=== PATIENT | female | born 1965 | race African-American/Black ===

== ENCOUNTER 2017-04-11 12:43 | Inpatient (IN) ==
[2017-04-11] MEDS ORDERED: ASPIRIN PO STA (12:46)
[2017-04-11] MEDS ORDERED: NS 1,000 ML ONE ×2 (12:50→15:13)
[2017-04-11] MEDS ORDERED: NS 1,000 ML IV SCH (12:54)
[2017-04-11 13:05] LABS: MANUAL DIFF NEEDED? NO
[2017-04-11] MEDS ORDERED: NEO-SYNEPHRINE IV ONE (13:05)
[2017-04-11 13:08] LABS: BASO% 0.5 % (0.0-0.8); EOS# 0.14 X1000 (0.0-0.7); EOS% 1.8 % (0.0-10.0); HEMATOCRIT 31.4 % (37.0-47.0); HEMOGLOBIN 9.6 g/dL (12.0-16.0); IMM GRAN# 0.02 X1000 (0.0-0.04); IMM GRAN% 0.3 % (0.0-0.5); LYMPH# 1.62 X1000 (1.2-3.4); LYMPH% 20.6 % (20.5-51.1); MCH 26.8 PG (27-31); MCHC 30.6 g/dL (33-37); MCV 87.7 FL (81-99); MONO# 0.88 X1000 (0.11-0.59); MONO% 11.2 % (1.7-9.3); MPV 9.6 FL (7.4-10.4); NEUT% 65.6 % (42.2-75.2); PLT 564 X1000 (130-400); RBC 3.58 XMIL (4.2-5.4)
[2017-04-11] MEDS ORDERED: ASPIRIN ONE (13:09)
[2017-04-11] MEDS ORDERED: ZOFRAN ONE (13:11)
[2017-04-11] MEDS ORDERED: ZOFRAN IV ONE (13:14)
--- NOTE | 2017-04-11 13:24 | EKG Report ---
Test Performed on : 04/11/2017 12:49:18 PM Test Reason : CP Blood Pressure : / mmHG Vent. Rate : 160 BPM Atrial Rate : 441 BPM P-R Int : 000 ms QRS Dur : 080 ms QT Int : 284 ms P-R-T Axes : 000 -03 007 degrees QTc Int : 463 ms Atrial fibrillation. with rapid ventricular response. Possible Anteroseptal infarct (cited on or before 18-OCT-2016) Abnormal ECG When compared with ECG of 18-OCT-2016 08:38, Atrial fibrillation. has replaced Sinus rhythm. Vent. rate has increased BY 86 BPM QRS duration has decreased ST now depressed in Inferior leads Nonspecific T wave abnormality now evident in Inferior leads T wave amplitude has increased in Lateral leads Unconfirmed Result
[2017-04-11 13:26] LABS: INR 1.04 (0.86-1.15); PROTIME 13.9 Seconds (12.1-15.5); PTT PL 24.2 Seconds (22.6-43.9)
[2017-04-11] MEDS ORDERED: LANOXIN ONE (13:27)
[2017-04-11 13:31] LABS: ALBUMIN 3.9 g/dL (3.5-5.0); POTASSIUM 4.1 mmol/L (3.5-5.1); TOTAL BILIRUBIN 0.7 mg/dL (0.20-1.00)
--- NOTE | 2017-04-11 13:41 | Diag Imaging Result Doc PS360 ---
CHEST-PORTABLE - 04/11/2017 INDICATION: CP TECHNIQUE: COMPARISON: 10/18/2016 FINDINGS: The lungs are normally expanded and clear. Heart size and mediastinal contours are normal. No pneumothorax or pleural effusion. IMPRESSION: Negative exam. Electronically signed by Faustino Patel 04/11/2017 1:39 PM
[2017-04-11 13:48] LABS: CK INDEX 1.9 (0.0-2.5); CK-MB 3.5 ng/mL (0.0-5.0)
[2017-04-11] MEDS ORDERED: NEO-SYNEPHRINE 50 MG in NS 250 ML IV SCH (14:00)
[2017-04-11 14:11] LABS: UR AMPHETAMINES QUAL NONE DETECTED (NONE DETECT); UR BARBITUATES QUAL NONE DETECTED (NONE DETECT); UR BENZODIAZEPIN QUAL NONE DETECTED (NONE DETECT); UR CANNABINOIDS QUAL PRESUMPTIVE POSITIVE (NONE DETECT); UR COCAINE QUAL NONE DETECTED (NONE DETECT); UR MDMA QUAL NONE DETECTED (NONE DETECT); UR METHADONE QUAL NONE DETECTED (NONE DETECT); UR METHAMPHETAMINE QUAL NONE DETECTED (NONE DETECT); UR OPIATES QUAL NONE DETECTED (NONE DETECT); UR OXYCODONE QUAL NONE DETECTED (NONE DETECT); UR PCP QUAL NONE DETECTED (NONE DETECT); UR TCA QUAL NONE DETECTED (NONE DETECT)
[2017-04-11] MEDS ORDERED: LANOXIN IV ONE (14:16)
[2017-04-11 14:33] LABS: BILIRUBIN URINE NEGATIVE (NEGATIVE); BLOOD URINE NEGATIVE (NEGATIVE); CLARITY CLEAR (CLEAR); COLOR YELLOW; LEUKOCYTES URINE TRACE (NEGATIVE); NITRITE URINE NEGATIVE (NEGATIVE); PROTEIN URINE TRACE mg/dL (NEGATIVE); SP GRAVITY URINE 1.005; UROBILINOGEN URINE NORMAL
[2017-04-11 14:35] LABS: URINE CAST NONE SEEN /LPF; URINE CRYSTAL NONE SEEN /HPF; URINE CULTURE PL NEEDED? YES; URINE EPITHELIAL CELLS <10 /HPF (<10); URINE SOURCE CLEAN CATCH; URINE WBC <10 /HPF (<10)
[2017-04-11] MEDS ORDERED: NS 1,000 ML IV ONE (15:12)
[2017-04-11] MEDS ORDERED: ZOFRAN IV PRN (16:02)
[2017-04-11] MEDS: NS 1,000 ML IV SCH (16:21)
[2017-04-11] MEDS ORDERED: PEPCID PO ONE (16:51)
[2017-04-11] MEDS ORDERED: XARELTO PO SCH (17:00)
--- NOTE | 2017-04-11 17:04 | CONSULTATION ---
DATE OF CONSULTATION: 04/11/2017 INDICATION: Atrial fibrillation with history of paroxysmal atrial fibrillation. HISTORY OF PRESENT ILLNESS: Ms. Mazariegos is a 51-year-old, black female, who is noncompliant with medical therapy, including her Xarelto. She has been off this medication for roughly 3 months. She continues to smoke. She presented for evaluation of heart racing and shortness of breath. This has been going on for more than 48 hours. She is unable to provide much history regarding the onset, but believes it was within the last week. She has not had any episodes of chest pain. She has not had any bleeding issues. She continues to be in atrial fibrillation presently. PAST MEDICAL HISTORY: 1. Significant for paroxysmal atrial fibrillation, previously maintained on Xarelto, but currently not compliant with therapy. 2. Diabetes mellitus. 3. Hypertension. 4. Hyperlipidemia. 5. Cannabis abuse. 6. Morbid obesity. SOCIAL HISTORY: She uses marijuana, which was positive on her drug screen. History of smoking as well. FAMILY HISTORY: Significant for hypertension. REVIEW OF SYSTEMS: A 10 system review of systems is negative except for those mentioned in HPI. PHYSICAL EXAMINATION: Vital signs: Afebrile. Heart rate in the low 100s. Blood pressure 126/70. Generally: No acute distress. HEENT: Oropharynx is moist. Normal dentition. Eye examination shows pink conjunctivae. White sclerae. Neck: Examination shows no obvious thyromegaly or thyroid tenderness. Cardiovascular: She is in an irregularly irregular rhythm. No obvious murmurs. She has no S3. She has no lower extremity edema. Chest: Clear bilaterally. No increased work of breathing. Abdomen: Soft, nontender, nondistended. No obvious organomegaly. Skin: Warm and dry throughout without any rashes. Neurological: Moving all extremities well. Cranial nerves 2-12 are intact without any sensation deficits. Psychiatric: Alert, oriented and pleasant. Normal mood and affect. PERTINENT DATA: She had a chest x-ray demonstrating no acute abnormalities. She had an electrocardiogram demonstrating atrial fibrillation, rapid rate of 160 beats per minute. Laboratory data shows white count 7.8, hematocrit 31.4, platelet count 564,000. Her INR is 1. Sodium 135, potassium 4.1, BUN 25, 12, creatinine 1.3. Magnesium level is 2. ProBNP is 495. Cardiac enzymes are negative. Urinalysis was reviewed. UDS screen was positive for marijuana. ASSESSMENT: Paroxysmal atrial fibrillation with recurrence. PLAN: We will plan for JEFFREY cardioversion in the morning. She has not been initiated on anticoagulation. I will restart, use Xarelto at 20 mg bedtime. I have stressed compliance with this in the future with the patient. Reportedly, she had a right lung biopsy in the past, but I am not seeing the results for this anywhere in our system. It does appear that she had a chest CT performed in December which suggested followup of a nodule. She had a nuclear scan performed in September demonstrating normal perfusion. In addition, she had an echocardiogram performed in September that showed an EF of 64% and an otherwise unremarkable study. Risks, benefits, and alternatives to the upcoming JEFFREY cardioversion was explained to the patient. We will plan on transferring the patient over to [facility] for dilatation of the JEFFREY cardioversion. cc: Frankie Kay MD
[2017-04-11] MEDS ORDERED: DILAUDID IV PRN (17:52)
[2017-04-11] MEDS: LOPRESSOR PO SCH (19:03)
[2017-04-11] MEDS ORDERED: NS 500 ML IV ONE (19:35)
--- NOTE | 2017-04-11 19:48 | HISTORY AND PHYSICAL ---
PRIMARY CARE PHYSICIAN: Dr. Lara. CHIEF COMPLAINT: Of "heart fluttering and I couldn't catch my breath." HISTORY OF PRESENTING ILLNESS: This is a 51-year-old female who presented to [facility] ER with complaints of her heart fluttering, shortness of breath. She felt her heart racing and tried to self-medicate with 4 metoprolol 50 mg total and 2 hydrochlorothiazide/lisinopril 20/12.5. Her heart rate on arrival was still 122. Blood pressure was 107/83 but approximately 20 minutes later it dropped to 88/68. Her D-dimer was 0.56. Her creatinine is 1.3. Her AST of 236, ALT 147. Her urine drug screen was presumptive positive for cannabinoids and so she was admitted to the intensive care unit for further evaluation and treatment. PAST MEDICAL HISTORY: Hypertension, diabetes, anxiety and atrial fibrillation. PAST SURGICAL HISTORY: and ankle surgery. FAMILY HISTORY: Noncontributory. SOCIAL HISTORY: She is a half a pack a day smoker and drinks 3 beers a week and 1 shot of liquor weekly. Denied any illicit drug use. ALLERGIES: Penicillin. HOME MEDICATIONS: She takes Pepcid 20 mg p.o. daily, Prozac 20 mg p.o. daily, lisinopril/hydrochlorothiazide 20/12.5 will be held and her metoprolol 50 mg daily will be held at this time. LABORATORY DATA: Showed a white blood cell count of 7.87, hemoglobin 9.6, hematocrit 31.4, platelets 564,000. PT and INR 13.9 and 1.04 with a D-dimer of 0.56. Sodium 135, potassium 4.1, chloride 99, CO2 18, BUN 12, creatinine 1.3, AST of 236, ALT 147. Cardiac enzyme was negative. ProBNP of 495. Urinalysis was negative. Urine drug screen was presumptive positive for cannabinoids. Serum alcohol level showed none detected. Chest x-ray was a negative exam and a EKG showed atrial fibrillation with RVR at 160. REVIEW OF SYSTEMS: She denied any fever, chills, blurred vision. She was positive for palpitations, shortness of breath. Denied any abdominal pain, constipation, diarrhea, burning or hurting with urination. PHYSICAL EXAM: VITAL SIGNS: On arrival she had a temperature of 97.9 degrees, pulse 122, respirations 20, blood pressure 107/83, saturating 98% on 2 L. GENERAL: This is a 51-year-old female who is lying in the bed and answers questions appropriately. HEENT: Normocephalic and atraumatic. Pupils are equal, round, reactive to light. Extraocular movements are intact. Oropharynx and nares are clear. NECK: Supple. LUNGS: Clear to auscultation bilaterally with equal lung expansion and chest wall movement. HEART: With an irregular rate and rhythm but no murmurs, rubs, or gallops. ABDOMEN: Soft, nontender, nondistended. Bowel sounds are present x4 quadrants. EXTREMITIES: No clubbing, cyanosis, or edema. NEUROLOGICAL: The cranial nerves 2-12 are grossly intact. ASSESSMENT: 1. Atrial fibrillation with rapid ventricular response. 2. Acute kidney injury. 3. Elevated liver function tests. 4. Diabetes type 2. 5. Tobacco abuse. PLAN: She was admitted to the intensive care unit. Will consult Cardiology. Continue normal saline at 150 mL an hour. She was given digoxin 250 mcg IV x1, Ousmane-Synephrine 50 mg IV x1, aspirin 325 mg p.o. x1. Will continue her home medications. We will check a lactate level now and will check a CBC, CMP in the a.m. Place on a diabetic diet. Dictated by LIV Siegel for Jacky Chance MD cc: LIV Siegel MD
[2017-04-11] MEDS ORDERED: NS 500 ML ONE (20:06)
[2017-04-11] MEDS: ELIQUIS PO SCH (20:08)
[2017-04-11] MEDS ORDERED: LOPRESSOR PO SCH (21:00)
[2017-04-12] MEDS: LOPRESSOR PO SCH ×4 (02:31→20:14)
[2017-04-12 05:45] LABS: MANUAL DIFF NEEDED? NO
[2017-04-12] MEDS: NS 1,000 ML IV SCH ×3 (05:56→20:14)
[2017-04-12 06:01] LABS: BASO% 0.6 % (0.0-0.8); EOS# 0.08 X1000 (0.0-0.7); EOS% 1.3 % (0.0-10.0); HEMATOCRIT 22.1 % (37.0-47.0); HEMOGLOBIN 6.7 g/dL (12.0-16.0); IMM GRAN# 0.01 X1000 (0.0-0.04); IMM GRAN% 0.2 % (0.0-0.5); LYMPH# 1.32 X1000 (1.2-3.4); LYMPH% 20.9 % (20.5-51.1); MCH 26.9 PG (27-31); MCHC 30.3 g/dL (33-37); MCV 88.8 FL (81-99); MONO# 0.87 X1000 (0.11-0.59); MONO% 13.8 % (1.7-9.3); MPV 9.6 FL (7.4-10.4); NEUT% 63.2 % (42.2-75.2); PLT 322 X1000 (130-400); RBC 2.49 XMIL (4.2-5.4)
--- NOTE | 2017-04-12 06:14 | EKG Report ---
Test Performed on : 04/12/2017 05:35:17 AM Test Reason : afib Blood Pressure : / mmHG Vent. Rate : 077 BPM Atrial Rate : 077 BPM P-R Int : 142 ms QRS Dur : 102 ms QT Int : 432 ms P-R-T Axes : 069 014 044 degrees QTc Int : 488 ms Sinus rhythm. with premature atrial complexes. with aberrant conduction. Prolonged QT Abnormal ECG When compared with ECG of 11-APR-2017 12:49, (Unconfirmed) Sinus rhythm. has replaced Atrial fibrillation. Vent. rate has decreased BY [address] no longer depressed in Inferior leads ST no longer depressed in Lateral leads Nonspecific T wave abnormality no longer evident in Inferior leads Confirmed by Jv Good MD ([id number]) on 04/19/2017 10:21:17 PM
[2017-04-12 06:19] LABS: AGAP 8; BUN 10 mg/dL (8-22); CHLORIDE 105 mmol/L (98-107); COSMO 269; POTASSIUM 3.6 mmol/L (3.5-5.1); SODIUM 135 mmol/L (136-145); TCO2 22 mmol/L (25-35)
[2017-04-12] MEDS ORDERED: BENADRYL PO ONE (06:53)
[2017-04-12] MEDS ORDERED: TYLENOL PO ONE (06:53)
[2017-04-12] MEDS: PEPCID PO SCH (09:14)
[2017-04-12] MEDS: ELIQUIS PO SCH (09:14)
[2017-04-12] MEDS: PROZAC PO SCH (09:15)
--- NOTE | 2017-04-12 09:29 | PROVIDER DOCUMENTATION ---
This chart was entered by Vanna Madrid Scribe, acting as scribe for Olman Leonard PA. HPI-Chest Pain - General Stated Complaint: CHEST PAIN Time Seen by Provider: 04/11/17 12:46 Source: patient Allergies/Adverse Reactions: Patient Allergies Allergy/AdvReac Type Severity Reaction Status Date / Time Penicillins Allergy Severe itching,hui Verified 04/11/17 12:54 h Home Medications: Home Medication List Medication Instructions Recorded Confirmed Last Taken Type Famotidine [Pepcid] 20 mg PO DAILY 10/29/15 04/11/17 04/11/17 History Fluoxetine HCl [Prozac] 20 mg PO DAILY 10/29/15 04/11/17 04/11/17 History Lisinopril/Hydrochlorothiazide 1 each PO DAILY 10/29/15 04/11/17 04/11/17 History [Lisinopril-Hctz 20-12.5 mg Tab] Metoprolol Succinate E.r. [Toprol 50 mg PO DAILY #30 tablet 10/21/16 04/11/17 Rx Xl] - History of Present Illness-CP Nature of Presenting Problem: 51 yo F presents to the ER with complaint of CP, n/v/d, and SOB. Has a hx of a- fib, xarelto is discontinued. Pt is in moderate distress, diaphoretic. Location: reports: central Chest Pain Radiation: reports: no radiation Quality of Pain: reports: dull Onset/Duration: 3 days ago Associated Symptoms: reports: diaphoresis, nausea, vomiting Review of Systems - Adult - REVIEW OF SYSTEMS - ADULT Constitutional: denies: chills, fever Eyes: reports: no symptoms reported Ears, Nose, Mouth & Throat: reports: no symptoms reported Cardiovascular: reports: chest pain, irregular heart rate. denies: palpitations Respiratory: reports: shortness of breath. denies: cough, wheezing Gastrointestinal: reports: nausea, vomiting. denies: abdominal pain, diarrhea Genitourinary: reports: no symptoms reported Musculoskeletal: reports: no symptoms reported Integumentary: reports: no symptoms reported Neurological: reports: no symptoms reported Psychiatric: reports: no symptoms reported Endocrine: reports: no symptoms reported Hematologic/Lymphatic: reports: no symptoms reported Allergic/Immunologic: reports: no symptoms reported All Other Systems: Reviewed and Negative Past History - Adult - PAST MEDICAL HISTORY-ADULT Review of Records: reports: Nursing Assessment Review, Medications Reviewed Cardiovascular: reports: A-Fib, HTN, hyperlipidemia Endocrine/Immune: reports: Diabetes - PRIOR SURGERIES/PROCEDURES Surgical/Procedure History: reports: BTL, , orthopedic (extremity) ( left ankle) - IMMUNIZATION STATUS Childhood Immunizations: See Nurse Assessment Flu Vaccine: See Nurse Assessment - SOCIAL HISTORY Substance Use: alcohol Alcohol Use Frequency: every day Physical Exam-General - PHYSICAL EXAM-ADULT Initial Vital Signs Reviewed: Yes - CONSTITUTIONAL General Appearance: alert, moderate distress - EYES Eyes: PERRL/EOMI, pink conjunctivae - HEAD, EARS, NOSE, MOUTH & THROAT HENMT: normocephalic/atraumatic, normal ENT inspection - NECK Neck: supple, normal inspection - CARDIOVASCULAR Cardiovascular: no edema, irregularly irregular - GASTROINTESTINAL (ABDOMEN) Abdominal Exam: normal bowel sounds, non tender, soft - MUSCULOSKELETAL Back Exam: no CVA tenderness, no vertebral tenderness Extremity: normal gait, normal inspection Peripheral Pulses: radial (R): 1+, radial (L): 1+ - SKIN Integumentary: normal color, diaphoresis. negative: warm/dry - NEUROLOGIC Neurologic: grossly normal, no motor/sensory deficits - PSYCHIATRIC Psych/Mental Status: normal mood/affect, normal thought content, normal thought process, oriented x 3 Progress - PLAN OF CARE/RESULTS Progress/Plan/Lab Results: 1400: heart rate improving. feeling better. Result Diagrams: 04/12/17 04:18 04/12/17 04:18 - EKG 1 Time of EKG reading by physician:: 12:49 EKG Read and Signed by:: Jv Good EKG Interpretation (*Must complete 3 of following elements*): Abnormal ( possible anteroseptal infarct, age undetermined) Rate: 160 Rhythm: a-fib with RVR [place]: normal QRS: normal CT Interval: normal ST Wave: normal - XRAY 1 XRAY Study: Chest Impression: Normal (negative exam, per radiologist) - CONSULTS/PCP/HOSPITALIST Notification #1 *Consult/PCP/Hospitalist*: Dr. Chance Time Discussed: 13:53 Consult Disposition: Will see in ED, Admit Departure - Departure Date of Disposition Decision: 04/11/17 Time of Disposition Decision: 14:00 DIAGNOSIS: Atrial fibrillation with RVR Chest pain Qualifiers: Chest pain type: unspecified Qualified Code(s): R07.9 - Chest pain, unspecified Disposition: ADMITTED INPATIENT 09 Certified Medical Emergency: Emergent Condition: Fair - Critical Care Note This patient required my direct & personal management of CC.: Yes Total Time (mins): 30 Critical Care Statement: This patient required my direct personal management to treat or rule out processes, the absence of which, could potentiallly result in sudden, clinically significant life or limb threatening deterioration. Attestation - Physician/ BERTIN Attestation Patient care was provided by Advanced Practice Provider:: Yes Advanced Practice Provider:: Olman Leonard Advanced Practice Provider documentation review:: The Mid-level provider documentation, treatment plan and medical decision making was reviewed by the physician who agrees with all treatment and medical decision making by the MLP. The physician spent face to face time with patient:: Yes Advanced Practice Provider documentation review:: The physician spent face to face time with this patient and agrees with all MLP documentation, treatment, and medical decision making by the MLP. See provider notes for further information. This chart was documented by the indicated scribe, (Vanna Madrid Scribe) and accurately reflects the services I performed and decisions made by me, Olman Leonard PA, as attested by the provider's signature.
--- NOTE | 2017-04-12 14:47 | Diag Imaging Result Doc PS360 ---
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 COMPARISON: None. FINDINGS: The uterus measures 7.3 cm in length by 5.5 x 3.2 cm in diameter. The dual layer endometrial thickness measures 3 mm. There is a 2.3 x 1.8 x 1.8 cm heterogeneous area with some acoustical shadowing at the superior uterine fundus. This may represent a fibroid. There is apparent 0.5 cm cystic area in the myometrium near this. There are two right ovarian cysts. One of these measures 2.7 x 2.9 x 1.9 cm, and the other 2.4 x 2.5 x 2.4 cm. There is a 1.6 x 1.2 x 0.8 cm left ovarian cyst. The bilateral ovaries demonstrate blood flow signal Doppler images. There is no other adnexal mass identified. There is no free fluid seen. IMPRESSION: Possible 2.3 x 1.8 x 1.8 cm fibroid at superior uterine fundus. The dual layer endometrial thickness measures 3 mm. Two right ovarian cysts which measure 2.9 cm and 2.5 cm in maximum dimension, respectively. 1.6 cm left ovarian cyst. Electronically signed by Matheus Cheng 04/12/2017 2:44 PM
--- NOTE | 2017-04-12 15:15 | ECHO REPORT ---
ORDER DATE: 04/12/2017 ECHOCARDIOGRAPHIC MEASUREMENTS: 1. Interventricular septum 1.3, left ventricular posterior wall 1.3, diastolic diameter 4.5, left atrium 3.5, aorta 3.0, normal left ventricular cavity size, estimated ejection fraction of 65- 70%. 2. There is systolic anterior motion of the anterior mitral leaflet. 3. Aortic valve leaflets are trileaflet. Tricuspid valve was normal. There was systolic anterior motion of the tip of the anterior mitral leaflet. 4. Pulmonic valve was normal. 5. Peak velocity across the aortic valve was less than 2 m/sec. There is no aortic stenosis or regurgitation. 6. There is mild tricuspid regurgitation, mild mitral regurgitation,. peak velocity across the tricuspid valve was 3.2 m/sec, pulmonary systolic pressure of 50 mmHg, there is trace pulmonary regurgitation. 7. There is no pericardial effusion or obvious intracardiac mass or thrombus. cc: MD Frankie Thakkar MD
--- NOTE | 2017-04-12 16:16 | PROGRESS NOTE ---
DATE: 04/12/2017 SUBJECTIVE: Ms. Mazariegos has no complaints today. She does deny any chest pain, palpitations, any shortness of breath. OBJECTIVE: Vital Signs: Blood pressure is 128/81 with a heart rate of 84, respirations 20, temperature is 97.6 degrees, with room air saturation of 100%. Cardiovascular: Regular rate and rhythm. S1 and S2 appreciated. Pulmonary: Breath sounds are clear with no increased work of breathing noted. Gastrointestinal: Abdomen is soft, nontender, nondistended with bowel sounds in all 4 quadrants. Back: No CVAT. No spine tenderness. Musculoskeletal: Good range of motion of joints. Extremities: No clubbing, cyanosis, or edema. Calves are nontender. Pulses are palpable x4. DIAGNOSTICS: WBC is 6.3 with a hemoglobin of 6.7, hematocrit 22.1 and platelets of 322,000. Sodium is 135, potassium 3.6, BUN 10, creatinine 0.8, with a glucose of 102. PROBLEM LIST: 1. Atrial fibrillation with rapid ventricular response. At present the patient is in sinus rhythm with premature atrial contractions. Cardiology has been consulted and we will continue with the current regimen. 2. Acute kidney injury. This has resolved. We will continue to follow her laboratory. 3. Elevated liver function tests. We will monitor. 4. Diabetes type 2. We will identify her home medications and continue as appropriate. We will place her on pattern blood glucose with sliding scale insulin. 5. Anemia. Hemoglobin and hematocrit have dropped to 6.7 and 22.1. She does have a history of perimenopausal vaginal bleeding stating that she has been evaluated by gynecology in the past, but she stated that she did not follow up for an ultrasound or her follow-up appointment. She does state that she had a menstrual period starting in January and she has essentially bled from January until now. She does state that she is having her menstrual period now through the hospitalization. We will consult Gynecology. 6. Noncompliance with medication and follow-up. PLAN: The patient was discharged from the hospital in October 2016 on Xarelto. She had a voucher for one free month. She states she could not afford Xarelto after this. She did not follow up with Cardiology nor did she call for any assistance with medications, nor did she contact her primary care physician. She was started on Eliquis yesterday and her hemoglobin and hematocrit did drop. She will be transfused 2 units of packed cells. We will hold her anticoagulation and we will await further treatments pending Gynecology recommendations. Dictated by LIV Cabrales for Jacky Chance MD cc: LIV Cabrales MD
[2017-04-12] MEDS ORDERED: MYLICON PO PRN (16:57)
[2017-04-12] MEDS: HUMALOG DOSE (PARKWAY) SUBQ SCH ×2 (17:09→20:10)
[2017-04-12] MEDS: MEGACE PO SCH (17:27)
[2017-04-12] MEDS: NORCO-7.5 PO PRN (22:09)
--- NOTE | 2017-04-12 22:13 | CONSULTATION ---
DATE OF CONSULTATION: 04/12/2017 REASON FOR CONSULTATION: Menorrhagia to anemia. HPI: This is a 51-year-old G3, P 4-0-0-4 who presented to [place] ER yesterday with complaints of feeling her heart fluttering and she cannot catch her breath. The patient attempted medication with metoprolol as well as her hydrochlorothiazide/lisinopril however continued to feel light- headed and dizzy and presented to [facility]. On presentation patient's hemoglobin was 6.7, 22.1. Patient was transfused 2 units packed red blood cells. Patient stated that she is using roughly 7 pads per day and had been since March 05 of this year. The patient notes regular menses prior to December of this year however she has recently started having hot flashes and noticed that both irregular intervals as well as heavy flow. Patient was seen by her primary care physician and started Provera 10 mg for 10 days however bleeding has persisted. Transvaginal ultrasound revealed a 2 cm fundal uterine fibroid, normal appearing endometrial thickness and no other abnormalities. OBSTETRICAL HISTORY: G1 through G2 full-term vaginal delivery. G3 full-term section with twins. 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 PAST MEDICAL HISTORY: Significant for hypertension, type 2 diabetes, anxiety and atrial fibrillation. PAST SURGICAL HISTORY: Significant for section as well as left knee surgery. MEDICATIONS: Include Prozac, metoprolol, amlodipine, Xarelto which now discontinued, Prilosec, lisinopril and metformin. ALLERGIES: Penicillin which caused a rash. SOCIAL: 1/2 pack per day smoker. The patient notes occasional alcohol use and occasional cannabis use. REVIEW OF SYSTEMS: Otherwise negative. PHYSICAL EXAMINATION: General: Well-developed, well-nourished female in no acute distress. HEENT: Pupils equal, round, react to light. Extraocular muscle intact. Chest: Clear to auscultation bilaterally. CV: Regular rate and rhythm. No murmurs, rubs, or gallops. Abdomen: Soft, nontender, nondistended. Extremities: No clubbing, cyanosis, or edema. Skin: No focal lesions. Neuro: No focal deficits. Pelvic: Sterile vaginal exam pending. ASSESSMENT AND PLAN: 1. Menorrhagia to anemia. 2. Hypertension. 3. Diabetes type 2. 4. Anxiety. 5. Atrial fibrillation. We will start Megace as prior therapy with Provera failed, patient will need endometrial ablation versus hysterectomy for definitive treatment. However like to perform outpatient endometrial biopsy as well as Pap smear prior to performing surgery, if continual Megace curtails bleeding would consider resuming anticoagulation however will defer to medicine/cardiology. Will sign off for now. Please have patient call [phone] on discharge and tell scheduling she was seen in the hospital and we will get her scheduled and seen as soon as possible. Thank you for the consult. cc: David Slade MD
[2017-04-13] MEDS: LOPRESSOR PO SCH ×2 (03:08→08:04)
[2017-04-13] MEDS: NS 1,000 ML IV SCH (05:59)
[2017-04-13] MEDS: HUMALOG DOSE (PARKWAY) SUBQ SCH ×2 (06:00→10:57)
[2017-04-13] MEDS: NORCO-7.5 PO PRN (06:04)
[2017-04-13 07:00] LABS: AGAP 8; ALBUMIN 3.5 g/dL (3.5-5.0); ALKALINE PHOSPHATASE 69 U/L (32-104); BUN 7 mg/dL (8-22); CALCIUM 8.6 mg/dL (8.8-10.2); CHLORIDE 105 mmol/L (98-107); COSMO 273; GOT 98 U/L (10-30); GPT 96 U/L (10-36); MAGNESIUM 1.8 mg/dL (1.5-2.7); POTASSIUM 3.5 mmol/L (3.5-5.1); SODIUM 137 mmol/L (136-145); TCO2 25 mmol/L (25-35); TOTAL PROTEIN 6.1 g/dL (6.3-8.3)
[2017-04-13 07:10] LABS: HEMATOCRIT 28.4 % (37.0-47.0); HEMOGLOBIN 8.9 g/dL (12.0-16.0); MCH 27.1 PG (27-31); MCHC 31.3 g/dL (33-37); MCV 86.3 FL (81-99); MPV 9.5 FL (7.4-10.4); RBC 3.29 XMIL (4.2-5.4)
[2017-04-13] MEDS: MEGACE PO SCH ×2 (08:04→11:40)
[2017-04-13] MEDS: PROZAC PO SCH (09:12)
[2017-04-13] MEDS: PEPCID PO SCH (09:12)
[2017-04-13 12:00] VITALS: BP 167/85
--- NOTE | 2017-04-15 06:21 | DISCHARGE SUMMARY ---
ADMISSION DATE: 04/11/2017 DISCHARGE DATE: 04/13/2017 DIAGNOSES: 1. Atrial fibrillation, rapid ventricular response. 2. Acute kidney injury, resolved. 3. Elevated liver function tests, resolved. 4. Diabetes type 2. 5. Menorrhagia to anemia. 6. Vaginal bleeding with anemia requiring 2 units of packed cells to be transfused. CONSULTATIONS: Dr. David Slade and Dr. Frankie Kay. DIAGNOSTICS: 1. On 04/12/2017, echocardiogram revealed an EF of 65-70% with normal left ventricular cavity size, trileaflet aortic valve. Tricuspid valve and pulmonic valve are normal , with a systolic anterior motion of the anterior mitral leaflet. Pulmonary systolic pressure of 50 with trace pulmonary regurgitation. No pericardial effusion or obvious intracardiac mass or thrombus. 2. Pelvis ultrasound with a possible 2.3 x 1.8 x 1.8 cm fibroid at the superior uterine fundus, dual layer endometrial thickness measures 3 mm, 2 right ovarian cysts which measure 2.9 and 2.5 cm in maximum dimension respectively, with a 1.6 left ovarian cyst. HOSPITAL COURSE: Ms. Mazariegos presented to the emergency room stating that her heart was fluttering and she could not catch her breath. She was found to be in atrial fibrillation , RVR, with a heart rate that ranged from 106-120. She was given IV hydration as well as IV digoxin. She was monitored in ICU. She remained in atrial fibrillation. Her heart rate did decrease to the 70s. She complained of no further palpitations, no chest pain. Xarelto 20 mg at bedtime was initiated. She had an initial hemoglobin and hematocrit of 9.6 and 31.4. Hemoglobin and hematocrit on the revealed hemoglobin of 6.7, hematocrit of 22.1 for which she was transfused 2 units of packed cells. She did increase to 8.9 and 28.4. She did state that she had a prior history of uterine menorrhagia. In fact, she had seen gynecology and an ultrasound with a followup appointment scheduled but she opted not to follow up. Dr. Slade in gynecology was consulted. A transvaginal ultrasound revealed a 2 cm fundal uterine fibroid. Megace was started. Her bleeding did slow somewhat. In the setting of vaginal bleeding requiring transfusion, Dr. Slade did recommend that she have an outpatient endometrial biopsy as well as a Pap smear prior to endometrial ablation versus hysterectomy for definitive treatment. He had recommended that the patient call his office on discharge to schedule an appointment as soon as possible for treatment Anticoagulation was discontinued due to vaginal bleeding requiring transfusion. She remained in [facility]us [facility]hythm during the hospitalization. DISCHARGE PHYSICAL EXAMINATION: Cardiovascular: Regular rate and rhythm. S1 and S2 are appreciated. Pulmonary: Breath sounds are clear. No increased work of breathing noted. Gastrointestinal: Abdomen is soft, nontender, nondistended. Bowel sounds in all 4 quadrants. Back: No CVAT. No spine tenderness. Musculoskeletal: Good range of motion of joints. Neurologic: She is alert and oriented x3 with cranial nerves 2-12 grossly intact. DISCHARGE MEDICATIONS: Metoprolol succinate ER 50 mg daily, lisinopril/ hydrochlorothiazide 20/12.5 daily, Prozac 20 mg daily, Pepcid 20 mg daily, Megace 20 mg p.o. t.i.d. as directed per Willem Larios 7.5/325 q.4 hours p.r.n. FOLLOWUP: 1. She has been given Dr. Slade's number and she has been instructed to call for an appointment as soon as possible for definitive treatment for menorrhagia. 2. She is to follow up with her primary care physician in the next 1-2 weeks. 3. She was instructed to return to the emergency room for palpitations, dizziness, chest discomfort, syncope, recurrence of atrial fibrillation, shortness of breath, PND, orthopnea, or any questions or concerns that she may have. 4. She was not instructed to call cardiology to set up an appointment after definitive treatment for menorrhagia or sooner if she has any further episodes of atrial fibrillation. As she will ultimately require anticoagulation . DISPOSITION: She is being discharged home in stable condition with family members. Dictated by LIV Cabrales for Jacky Chance MD cc: LIV Cabrales MD [facility]
== END 2017-04-13 12:35 | disposition home or self-care (01) ==
LOC: P.ED 12:43 → P.ICU 12:44 → P.MEDSURG 04-12 23:47
PROVIDERS: ATTEND Family Medicine